=== PATIENT | female | born 1960 | race African-American/Black ===

== ENCOUNTER 2024-11-10 22:16 | Inpatient (IN) | payer BC, OTHER ==
[~2024-11-10] VITALS: Ht 167.6 cm; Wt 189.1 kg
[2024-11-10] MEDS ORDERED: HYDROMORPHONE HCL/PF 2MG/ML INJ IV ONE (23:00)
[2024-11-10] MEDS: ONDANSETRON HCL 4MG/2ML INJ IV ONE (23:27)
[2024-11-10] MEDS: PIPERACILLIN/TAZO 3.375G/50ML 50 ML IV SCH (23:27)
[2024-11-10] MEDS: HYDROMORPHONE HCL/PF 1MG/ML INJ IV SCH (23:28)
[2024-11-10 23:43] LABS: BASOPHILS % 0.8 % (0.0-2.0); EOSINOPHILS % 0.6 % (0.0-5.0); HEMATOCRIT. 35.8 % (36.0-48.0); HEMOGLOBIN. 11.2 g/dL (12.0-16.0); LYMPHOCYTES % 19.0 % (20.0-50.0); MEAN PLATELET VOLUME 9.6 fl (7.4-10.4); MONOCYTES % 9.9 % (2.0-8.0); NEUTROPHILS % 69.7 % (40.0-76.0); PLATELET 343 x1000/uL (130-400); RED BLOOD CELL COUNT 4.51 mill/uL (4.2-5.4); RED CELL DISTRIBUTION WIDTH 19.8 % (11.6-14.6)
[2024-11-10 23:50] LABS: CREATININE 0.8 mg/dL (0.6-1.0); UREA NITROGEN BLOOD 23 mg/dL (9-23)
[2024-11-10 23:51] LABS: TROPONIN I HIGH SENSITIVITY 15 ng/L (3.0-34)
[2024-11-10 23:52] LABS: ASPARTATE AMINOTRANSFERASE 54 IU/L (<34); BILIRUBIN TOTAL 1.4 mg/dL (0.1-1.0); PROTEIN TOTAL 7.6 g/dL (6.0-8.3)
[2024-11-11] VITALS (25 sets, daily range): BP systolic 75–163; BP diastolic 42–102; PULSE 80–86; RESP 11–29; TEMP 36.8–37.1; O2SAT 90–99
[2024-11-11] MEDS: HYDROMORPHONE HCL/PF 2MG/ML INJ IV ONE (00:07)
[2024-11-11] MEDS: KETOROLAC 30MG/ML VIAL IV ONE (00:23)
[2024-11-11] MEDS: NALOXONE HCL 0.4MG/ML 1ML VIAL ONE (00:25)
[2024-11-11] MEDS: NALOXONE HCL 1MG/ML 2ML VIAL ONE (00:25)
[2024-11-11] MEDS ORDERED: HYDROMORPHONE HCL/PF 1MG/ML INJ IV NR (00:45)
[2024-11-11] MEDS ORDERED: HYDROMORPHONE HCL/PF 2MG/ML INJ IV ONE (00:45)
[2024-11-11 01:29] LABS: BG BASE EXCESS 0.5 mmol/L (-2.0-3.0); BG CARBOXYHEMOGLOBIN 1.0 % (0.5-1.5); BG DEOXYHEMOGLOBIN 1.7 % (0.0-5.0); BG FLOW(L/min) 6.00 L/min; BG HCO3 ACT 27.3 mmol/L (21.0-28.0); BG METHEMOGLOBIN 0.3 % (0.5-1.5); BG OXYGEN SATURATION 98.3 % (94.0-98.0); BG OXYHEMOGLOBIN 97.0 % (94.0-98.0); BG PCO2 53.2 mmHg (32.0-45.0); BG PH 7.328 (7.350-7.450); BG PO2 133.0 mmHg (83.0-108.0); BG SAMPLE SITE RIGHT RADIAL; BG TOTAL HEMOGLOBIN 12.6 g/dL (12.0-16.0); BG VENT MODE MASK - SIMPLE
[2024-11-11] MEDS ORDERED: FUROSEMIDE 100MG/10ML VIAL IVP ONE (01:30)
[2024-11-11] MEDS: NALOXONE HCL 0.4MG/ML 1ML VIAL IV ONE (03:04)
[2024-11-11] MEDS: FUROSEMIDE 40MG/4ML VIAL IVP NR (03:46)
[2024-11-11] MEDS ORDERED: PHENYLEPHRINE 100 MG in DEXT 5% WATER 240 ML IV PRN (04:15)
[2024-11-11] MEDS ORDERED: NOREPINEPHRINE 32 MG in DEXT 5% WATER 218 ML IV PRN (04:15)
[2024-11-11] MEDS ORDERED: NICARDIPINE 40MG/200ML PREMIX 200 ML IV PRN (04:15)
[2024-11-11] MEDS ORDERED: DOCUSATE SODIUM 100MG CAPSULE PO PRN (04:30)
[2024-11-11] MEDS ORDERED: IPRATROPIUM/ALBUTEROL 0.5-3(2.5)MG/3ML NEB HHN PRN (04:30)
[2024-11-11] MEDS ORDERED: ACETAMINOPHEN 325MG TABLET PO PRN (04:30)
[2024-11-11] MEDS ORDERED: ONDANSETRON HCL 4MG/2ML INJ IV PRN (04:30)
[2024-11-11] MEDS ORDERED: DEXTROSE 50% WATER 50ML SYRINGE IV PRN (04:45)
[2024-11-11] MEDS ORDERED: VANCOMYCIN 2GM PMX (XELLIA) 400 ML IV NR (05:00)
[2024-11-11 05:08] LABS: BG BASE EXCESS 1.0 mmol/L (-2.0-3.0); BG CARBOXYHEMOGLOBIN 1.0 % (0.5-1.5); BG DEOXYHEMOGLOBIN 4.3 % (0.0-5.0); BG FRACTION INSPIRED OXYGEN 60; BG HCO3 ACT 30.6 mmol/L (21.0-28.0); BG METHEMOGLOBIN 0.1 % (0.5-1.5); BG OXYGEN SATURATION 95.7 % (94.0-98.0); BG OXYHEMOGLOBIN 94.6 % (94.0-98.0); BG PCO2 75.2 mmHg (32.0-45.0); BG PEEP (cmH2O) 5.0 cmH2O; BG PH 7.227 (7.350-7.450); BG PO2 96.6 mmHg (83.0-108.0); BG TOTAL HEMOGLOBIN 13.0 g/dL (12.0-16.0); BG VENT MODE MASK - BIPAP; BG VENT RATE 18.0 set
[2024-11-11] MEDS ORDERED: NALOXONE HCL 0.4MG/ML VIAL IV PRN (06:15)
[2024-11-11] MEDS: PIPERACILLIN/TAZO 3.375G/50ML 50 ML IV SCH (06:27)
[2024-11-11] MEDS: DEXT 5%/0.9% NACL 1,000 ML IV SCH (06:27)
[2024-11-11] MEDS ORDERED: ATOR40TA70 PO (06:49)
[2024-11-11] MEDS ORDERED: METF-414 PO (06:49)
[2024-11-11] MEDS ORDERED: GABA-1180 PO (06:49)
[2024-11-11] MEDS ORDERED: NAPR-681 PO (06:49)
[2024-11-11] MEDS ORDERED: HYDR200T35 PO (06:49)
[2024-11-11] MEDS ORDERED: NORT25CA PO (06:49)
[2024-11-11] MEDS: FUROSEMIDE 40MG/4ML VIAL IVP SCH (08:27)
[2024-11-11] MEDS: PANTOPRAZOLE SODIUM 40 MG/VIAL IV SCH ×2 (08:27→21:51)
[2024-11-11] MEDS: BLOOD SUGAR DIAGNOSTIC STRIP TEST SCH (08:29)
[2024-11-11] MEDS: ENOXAPARIN 40MG/0.4ML SYR SUBCUT SCH (08:29)
[2024-11-11 10:39] LABS: BASOPHILS % 0.3 % (0.0-2.0); EOSINOPHILS % 0.0 % (0.0-5.0); HEMATOCRIT. 34.6 % (36.0-48.0); HEMOGLOBIN. 11.0 g/dL (12.0-16.0); LYMPHOCYTES % 8.9 % (20.0-50.0); MEAN PLATELET VOLUME 8.8 fl (7.4-10.4); MONOCYTES % 5.5 % (2.0-8.0); NEUTROPHILS % 85.3 % (40.0-76.0); PLATELET 273 x1000/uL (130-400); RED BLOOD CELL COUNT 4.38 mill/uL (4.2-5.4); RED CELL DISTRIBUTION WIDTH 18.7 % (11.6-14.6)
[2024-11-11 11:04] LABS: CREATININE 0.8 mg/dL (0.6-1.0); TRIGLYCERIDE 74 mg/dL (0-150); UREA NITROGEN BLOOD 22 mg/dL (9-23)
[2024-11-11 11:05] LABS: ASPARTATE AMINOTRANSFERASE 31 IU/L (<34); LDL CHOLESTEROL 52 mg/dL (5-100)
[2024-11-11 11:06] LABS: BILIRUBIN DIRECT 0.4 mg/dL (<=3.0); BILIRUBIN TOTAL 1.2 mg/dL (0.1-1.0); PHOSPHORUS 4.7 mg/dL (2.5-4.9); PROTEIN TOTAL 7.7 g/dL (6.0-8.3)
[2024-11-11 11:08] LABS: T4 FREE 1.18 ng/dL (0.89-1.76)
[2024-11-11 11:19] LABS: TROPONIN I HIGH SENSITIVITY 22 ng/L (3.0-34)
[2024-11-11] MEDS: MORPHINE SULFATE 2 MG/ML INJ (NOT FOR IM USE) IV PRN (11:40)
[2024-11-11] MEDS: IPRATROPIUM/ALBUTEROL 0.5-3(2.5)MG/3ML NEB HHN SCH (12:25)
[2024-11-11] MEDS: VANCOMYCIN 2GM PMX (XELLIA) 400 ML IV NR (13:31)
[2024-11-11] MEDS: KETOROLAC 30MG/ML VIAL IV PRN (13:43)
[2024-11-11 14:35] LABS: BG BASE EXCESS 3.4 mmol/L (-2.0-3.0); BG CARBOXYHEMOGLOBIN 1.1 % (0.5-1.5); BG DEOXYHEMOGLOBIN 1.2 % (0.0-5.0); BG FLOW(L/min) 30.00 L/min; BG FRACTION INSPIRED OXYGEN 100; BG HCO3 ACT 31.5 mmol/L (21.0-28.0); BG METHEMOGLOBIN 0.1 % (0.5-1.5); BG OXYGEN SATURATION 98.8 % (94.0-98.0); BG OXYHEMOGLOBIN 97.6 % (94.0-98.0); BG PCO2 66.4 mmHg (32.0-45.0); BG PH 7.294 (7.350-7.450); BG PO2 135.3 mmHg (83.0-108.0); BG SAMPLE SITE RIGHT RADIAL; BG TOTAL HEMOGLOBIN 11.8 g/dL (12.0-16.0); BG VENT MODE HIGH FLOW
[2024-11-11 17:53] LABS: CREATINE KINASE MB FRACTION 2.5 ng/mL (0.5-3.6); TROPONIN I HIGH SENSITIVITY 23.0 ng/L (3.0-34)
[2024-11-11] MEDS: NORTRIPTYLINE HCL 25MG CAPSULE PO SCH (21:51)
[2024-11-11] MEDS: HYDROXYCHLOROQUINE SULFATE 200MG TABLET PO SCH (21:51)
[2024-11-12] VITALS (18 sets, daily range): BP systolic 121–156; BP diastolic 64–84; PULSE 84–98; RESP 16–27; TEMP 36.4–37.6; O2SAT 92–96
[2024-11-12 05:52] LABS: BASOPHILS % 0.3 % (0.0-2.0); EOSINOPHILS % 0.1 % (0.0-5.0); HEMATOCRIT. 32.8 % (36.0-48.0); HEMOGLOBIN. 10.4 g/dL (12.0-16.0); LYMPHOCYTES % 11.1 % (20.0-50.0); MEAN PLATELET VOLUME 8.8 fl (7.4-10.4); MONOCYTES % 14.9 % (2.0-8.0); NEUTROPHILS % 73.6 % (40.0-76.0); PLATELET 259 x1000/uL (130-400); RED BLOOD CELL COUNT 4.08 mill/uL (4.2-5.4); RED CELL DISTRIBUTION WIDTH 19.4 % (11.6-14.6)
[2024-11-12 05:57] LABS: CREATINE KINASE MB FRACTION 2.1 ng/mL (0.5-3.6)
[2024-11-12 05:59] LABS: CREATININE 0.8 mg/dL (0.6-1.0)
[2024-11-12 06:00] LABS: UREA NITROGEN BLOOD 20 mg/dL (9-23)
[2024-11-12 06:02] LABS: PHOSPHORUS 4.1 mg/dL (2.5-4.9)
[2024-11-12] MEDS: METFORMIN HCL 500MG TABLET PO SCH (08:00)
[2024-11-12] MEDS ORDERED: VANCOMYCIN 1.5GM/250ML 250 ML IV SCH (10:00)
[2024-11-12 10:51] LABS: BG BASE EXCESS 7.7 mmol/L (-2.0-3.0); BG CARBOXYHEMOGLOBIN 1.2 % (0.5-1.5); BG DEOXYHEMOGLOBIN 6.5 % (0.0-5.0); BG FLOW(L/min) 40.00 L/min; BG FRACTION INSPIRED OXYGEN 100; BG HCO3 ACT 35.7 mmol/L (21.0-28.0); BG METHEMOGLOBIN 0.3 % (0.5-1.5); BG OXYGEN SATURATION 93.4 % (94.0-98.0); BG OXYHEMOGLOBIN 92.0 % (94.0-98.0); BG PCO2 70.1 mmHg (32.0-45.0); BG PH 7.325 (7.350-7.450); BG PO2 72.8 mmHg (83.0-108.0); BG SAMPLE SITE RIGHT RADIAL; BG TOTAL HEMOGLOBIN 11.3 g/dL (12.0-16.0); BG VENT MODE HIGH FLOW
[2024-11-12 17:29] LABS: BG BASE EXCESS 6.1 mmol/L (-2.0-3.0); BG CARBOXYHEMOGLOBIN 0.7 % (0.5-1.5); BG DEOXYHEMOGLOBIN 3.3 % (0.0-5.0); BG FRACTION INSPIRED OXYGEN 100; BG HCO3 ACT 31.8 mmol/L (21.0-28.0); BG METHEMOGLOBIN 0.3 % (0.5-1.5); BG OXYGEN SATURATION 96.7 % (94.0-98.0); BG OXYHEMOGLOBIN 95.7 % (94.0-98.0); BG PCO2 50.8 mmHg (32.0-45.0); BG PH 7.414 (7.350-7.450); BG PO2 84.6 mmHg (83.0-108.0); BG SAMPLE SITE RIGHT RADIAL; BG TOTAL HEMOGLOBIN 11.6 g/dL (12.0-16.0); BG TOTAL RESPIRATORY RATE 28 b/min; BG VENT MODE MASK - BIPAP; BG VENT RATE 24.0 set
[2024-11-12] MEDS: CEFTRIAXONE 1GM/50ML 50 ML IV SCH (18:34)
[2024-11-12] MEDS ORDERED: ATORVASTATIN CALCIUM 40MG TABLET PO SCH (21:00)
[2024-11-13] VITALS (18 sets, daily range): BP systolic 130–154; BP diastolic 66–126; PULSE 92–105; RESP 16–25; TEMP 37.3–37.4; O2SAT 53–97
[2024-11-13 05:49] LABS: PLATELET 266 x1000/uL (130-400); RED BLOOD CELL COUNT 4.15 mill/uL (4.2-5.4); RED CELL DISTRIBUTION WIDTH 19.0 % (11.6-14.6)
[2024-11-13 06:07] LABS: CREATININE 0.6 mg/dL (0.6-1.0); UREA NITROGEN BLOOD 15 mg/dL (9-23)
[2024-11-13 06:09] LABS: PHOSPHORUS 2.4 mg/dL (2.5-4.9)
[2024-11-13] MEDS ORDERED: FAMOTIDINE 20MG/2ML VIAL IV SCH (09:00)
[2024-11-13 10:13] LABS: CLARITY URINE CLEAR (CLEAR); COLOR URINE DARK YELLOW (YELLOW); GLUCOSE URINE NEGATIVE (NEGATIVE); KETONES URINE 1+ (NEGATIVE); LEUKOCYTE ESTERASE URINE NEGATIVE (NEGATIVE); NITRITE URINE NEGATIVE (NEGATIVE); OCCULT BLOOD URINE 2+ (NEGATIVE); PH URINE 6.0 (4.5-8.0); PROTEIN URINE 1+ (NEGATIVE); SPECIFIC GRAVITY URINE 1.020 (1.005-1.030); UROBILINOGEN URINE 1.0 E.U./dL (0.2-1.0)
[2024-11-13 10:25] LABS: BACTERIA URINE 1+; RBC URINE 0-2 /hpf (0-2); SQUAMOUS EPITHELIAL CELL URINE 2+ /lpf (RARE/1+); WBC URINE 0-2 /hpf (0-2); YEAST URINE 1+
[2024-11-13 10:35] LABS: *AMPHETAMINES SCREEN URINE NEGATIVE (NEGATIVE); *BARBITURATES SCREEN URINE NEGATIVE (NEGATIVE); *BENZODIAZEPINES SCREEN URINE NEGATIVE (NEGATIVE); *COCAINE SCREEN URINE NEGATIVE (NEGATIVE); METHADONE URINE SCREEN NEGATIVE (NEGATIVE)
[2024-11-13 10:36] LABS: CANNABINOID URINE SCREEN NEGATIVE (NEGATIVE); ECSTASY MDMA SCREEN URINE NEGATIVE (NEGATIVE); OPIATES URINE SCREEN PRESUMPTIVE POSITIVE (NEGATIVE); PHENCYCLIDINE URINE SCREEN NEGATIVE (NEGATIVE)
[2024-11-13 11:03] LABS: BG BASE EXCESS 9.7 mmol/L (-2.0-3.0); BG CARBOXYHEMOGLOBIN 0.5 % (0.5-1.5); BG DEOXYHEMOGLOBIN 7.6 % (0.0-5.0); BG FLOW(L/min) 40.00 L/min; BG FRACTION INSPIRED OXYGEN 100; BG HCO3 ACT 36.5 mmol/L (21.0-28.0); BG METHEMOGLOBIN 0.3 % (0.5-1.5); BG OXYGEN SATURATION 92.3 % (94.0-98.0); BG OXYHEMOGLOBIN 91.6 % (94.0-98.0); BG PCO2 61.1 mmHg (32.0-45.0); BG PH 7.394 (7.350-7.450); BG PO2 66.8 mmHg (83.0-108.0); BG SAMPLE SITE RIGHT RADIAL; BG TOTAL HEMOGLOBIN 11.4 g/dL (12.0-16.0); BG VENT MODE HIGH FLOW
[2024-11-13] MEDS: KCL 20MEQ/100ML PREMIX 100 ML IV SCH (13:36)
[2024-11-13] MEDS: POTASSIUM CHLORIDE 20MEQ TABLET SR PO SCH (17:14)
[2024-11-13] MEDS: POTASSIUM PHOSPHATE 15 MMOL in DEXT 5% WATER 245 ML IV SCH (21:56)
[2024-11-14] VITALS (16 sets, daily range): BP systolic 87–151; BP diastolic 54–99; PULSE 91–107; RESP 17–25; TEMP 36.8–37.5; O2SAT 84–98
[2024-11-14] MEDS: BLOOD SUGAR DIAGNOSTIC STRIP TEST SCH
[2024-11-14 06:19] LABS: HEMATOCRIT. 31.3 % (36.0-48.0); HEMOGLOBIN. 9.9 g/dL (12.0-16.0); MEAN PLATELET VOLUME 9.2 fl (7.4-10.4); PLATELET 250 x1000/uL (130-400); RED BLOOD CELL COUNT 3.97 mill/uL (4.2-5.4); RED CELL DISTRIBUTION WIDTH 18.8 % (11.6-14.6)
[2024-11-14 06:44] LABS: CREATININE 0.7 mg/dL (0.6-1.0); UREA NITROGEN BLOOD 17 mg/dL (9-23)
[2024-11-14 06:46] LABS: PHOSPHORUS 1.8 mg/dL (2.5-4.9)
[2024-11-14 14:58] LABS: LYMPHOCYTES % MANUAL 4.0 % (20.0-60.0); MONOCYTES % MANUAL 12.0 % (2.0-8.0); NEUTROPHILS % MANUAL 84.0 % (45.0-75.0); PLATELET ESTIMATE NORMAL
[2024-11-14] MEDS: MORPHINE SULFATE 2 MG/ML INJ (NOT FOR IM USE) IV PRN (23:23)
[2024-11-15] VITALS (16 sets, daily range): BP systolic 129–155; BP diastolic 63–88; PULSE 89–97; RESP 19–28; TEMP 36.4–38; O2SAT 94–98
[2024-11-15 09:00] LABS: PLATELET 254 x1000/uL (130-400); RED BLOOD CELL COUNT 3.95 mill/uL (4.2-5.4); RED CELL DISTRIBUTION WIDTH 18.8 % (11.6-14.6)
[2024-11-15 09:10] LABS: BG BASE EXCESS 12.5 mmol/L (-2.0-3.0); BG CARBOXYHEMOGLOBIN 0.8 % (0.5-1.5); BG DEOXYHEMOGLOBIN 11.9 % (0.0-5.0); BG FRACTION INSPIRED OXYGEN 30; BG HCO3 ACT 38.7 mmol/L (21.0-28.0); BG METHEMOGLOBIN 0.3 % (0.5-1.5); BG OXYGEN SATURATION 88.0 % (94.0-98.0); BG OXYHEMOGLOBIN 87.0 % (94.0-98.0); BG PCO2 59.1 mmHg (32.0-45.0); BG PH 7.434 (7.350-7.450); BG PO2 55.8 mmHg (83.0-108.0); BG SAMPLE SITE RIGHT RADIAL; BG TOTAL HEMOGLOBIN 10.4 g/dL (12.0-16.0); BG VENT MODE MASK - BIPAP; BG VENT RATE 18.0 set
[2024-11-15 09:16] LABS: CREATININE 0.6 mg/dL (0.6-1.0); UREA NITROGEN BLOOD 19 mg/dL (9-23)
[2024-11-15 09:18] LABS: PHOSPHORUS 1.6 mg/dL (2.5-4.9)
[2024-11-15] MEDS: POTASSIUM PHOSPHATE 20 MMOL in DEXT 5% WATER 243.3333 ML IV NR (18:01)
[2024-11-15] MEDS: KETOROLAC 15MG/ML VIAL IV PRN (22:57)
[2024-11-15] MEDS: ACETAMINOPHEN 325MG TABLET PO PRN (23:06)
[2024-11-16] VITALS: BP 132/102; PULSE 102; RESP 22; O2SAT 96
[2024-11-16 01:25] VITALS: BP 122/86; PULSE 98; TEMP 98.2; O2SAT 98
== END 2024-11-16 00:10 | disposition short-term general hospital (02) | DRG 871 ==
LOC: ER 22:16 → CVICU 11-11 01:33 → EDBEDREQTM 11-11 02:11 → EDBEDREQ 11-11 02:11 → EDBEDREQDT 11-11 02:11 → EDBEDREQSVC 11-11 02:11 → ENRESERV 11-11 04:55 → 5EST 11-11 20:30
PROVIDERS: ADMIT Internal Medicine; ATTEND Internal Medicine
PROC: 5A09357 Assistance with Respiratory Ventilation, Less than 24 Consecutive Hours, Continuous Positive Airway Pressure (ICD-10-PCS; principal; 2024-11-11)
PROC: 5A0935A Assistance with Respiratory Ventilation, Less than 24 Consecutive Hours, High Flow/Velocity Cannula (ICD-10-PCS; 2024-11-11)
PROC: 5A09357 Assistance with Respiratory Ventilation, Less than 24 Consecutive Hours, Continuous Positive Airway Pressure (ICD-10-PCS; 2024-11-12)
PROC: 5A0935A Assistance with Respiratory Ventilation, Less than 24 Consecutive Hours, High Flow/Velocity Cannula (ICD-10-PCS; 2024-11-12)
PROC: 5A09357 Assistance with Respiratory Ventilation, Less than 24 Consecutive Hours, Continuous Positive Airway Pressure (ICD-10-PCS; 2024-11-13)
PROC: 5A0935A Assistance with Respiratory Ventilation, Less than 24 Consecutive Hours, High Flow/Velocity Cannula (ICD-10-PCS; 2024-11-13)
PROC: 5A09357 Assistance with Respiratory Ventilation, Less than 24 Consecutive Hours, Continuous Positive Airway Pressure (ICD-10-PCS; 2024-11-14)
PROC: 5A09357 Assistance with Respiratory Ventilation, Less than 24 Consecutive Hours, Continuous Positive Airway Pressure (ICD-10-PCS; 2024-11-15)
DX: A41.9 Sepsis, unspecified organism (principal); J96.21 Acute and chronic respiratory failure with hypoxia; J96.22 Acute and chronic respiratory failure with hypercapnia; I16.1 Hypertensive emergency; Z68.44 Body mass index [BMI] 60.0-69.9, adult; E87.3 Alkalosis; K42.0 Umbilical hernia with obstruction, without gangrene; E87.4 Mixed disorder of acid-base balance; G47.33 Obstructive sleep apnea (adult) (pediatric); I11.0 Hypertensive heart disease with heart failure; E66.01 Morbid (severe) obesity due to excess calories; D50.9 Iron deficiency anemia, unspecified; T40.2X1A Poisoning by other opioids, accidental (unintentional), initial encounter; T40.2X5A Adverse effect of other opioids, initial encounter; R74.01 Elevation of levels of liver transaminase levels; I50.9 Heart failure, unspecified; I27.20 Pulmonary hypertension, unspecified; K43.9 Ventral hernia without obstruction or gangrene; Z91.148 Patient's other noncompliance with medication regimen for other reason; Z79.899 Other long term (current) drug therapy; Y92.89 Other specified places as the place of occurrence of the external cause
CPT/HCPCS: 36415; 36600; 71045; 74018; 74176; 80048; 80053; 80061; 80076; 80305; 81003; 82040; 82375; 82550; 82553; 82728; 82805; 82962; 83036; 83540; 83550; 83605; 83735; 83880; 84100; 84145; 84439; 84443; 84484; 85025; 85027; 85379; 86850; 86900; 93005; 93306; 93970; 94070; 94640; 94660; 94664; 94760; 96374; 96375; 96376; 97162; 97166; 99291; 99292; A4606; J0696; J1171; J1650; J1885; J1938; J2270; J2312; J2405; J2470; J2543; J3373; J3480; J3490; J7060